=== PATIENT | male | born 1950 | race Caucasian/White ===

== ENCOUNTER → 2016-10-17 | Outpatient (CLI) | payer OTHER ==
--- NOTE | ~2016-10-17 | CR97 ---
[facility] A Service of [facility] RADIOLOGY TEXT RESULTS PATIENT: KARUNA OSMAN LOCATION: [facility] : 52 UNIT #: [id number] AGE: [address]: Zeb Rodriguez MD SEX: M ORDER DR: [id number] [facility]. [place], [place] [address] [id number] O MR#: [id number] Acc #: [id number] NAME: KARUNA OSMAN : 1950 SEX: M STUDY DATE/TIME: 10/17/2016 10:51 UNIT: [facility] ROOM: STUDY DESCRIPTION: CR Esophagram Attending Physician: Zeb Rodriguez M.D. Referring Physician: Zeb Rodriguez M.D. Ordering Physician: Zeb Rodriguez M.D. Primary Care Physician: Zeb Rodriguez M.D. MEDICAL IMAGING REPORT This report is preliminary unless electronic signature is present EXAM Double contrast barium esophagram INDICATION Upper throat pain when eating. This occurs on and off and has been present for about a year. TECHNIQUE Patient was administered bicarbonate crystals followed by thick and thin barium. Multiple fluoroscopic images were obtained. 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 I do not see any evidence of stricture or mass lesion. Patient did require some secondary contractions for full stripping of the esophagus. No hiatal hernia is seen. Patient did appear to have some spontaneous reflux into the thoracic esophagus. Patient was administered barium tablet which passed easily into the stomach. Total fluoroscopy time was 0.9 minutes. A total of 14 fluoroscopic images were obtained. IMPRESSION 1. No obvious etiology for the patient's symptomatology was seen. No stricture or mass lesion of the esophagus was identified. Patient did require some secondary contractions for full stripping of the esophagus although I did not see any tertiary contractions. 2. Patient does have reflux into the mid-thoracic esophagus. Dictated by... Asmita Velásquez M.D. [facility] A Service of [facility] RADIOLOGY TEXT RESULTS PATIENT: KARUNA OSMAN LOCATION: [facility] : 52 UNIT #: [id number] AGE: [address]: Zeb Rodriguez MD SEX: M ORDER DR: THIS IS AN ELECTRONICALLY VERIFIED REPORT Asmita Velásquez M.D. at 10/19/2016 12:21 PM ROSALINDA/janelle TD: 10/18/2016 10:06 JOB #: [id number] MEDICAL IMAGING REPORT Page 1 of 1 COPY
== END | disposition home or self-care (01) ==
LOC: CRAD 10:04
DX: R13.19 Other dysphagia (principal); K21.9 Gastro-esophageal reflux disease without esophagitis
CPT/HCPCS: 74220